=== PATIENT | male | born 1990 | race Caucasian/White ===

== ENCOUNTER 2017-08-16 15:50 | Emergency (ER) | payer OTHER ==
[2017-08-16 16:00] VITALS: TEMP 98.1
--- NOTE | 2017-08-16 16:10 | CPEKG ---
Heart Rate: 76 RR Interval: 789 P-R Interval: 132 QRSD Interval: 96 QT Interval: 384 QTC Interval: 432 P [place]: 48 QRS [place]: 24 T Wave [place]: 27 EKG Severity - ABNORMAL ECG - EKG Impression: SINUS RHYTHM EKG Impression: PROBABLE LEFT VENTRICULAR HYPERTROPHY Electronically Signed By: Justine Springer 16-Aug-2017 21:48:15
[2017-08-16] MEDS ORDERED: NS 1,000 ML IV ONE (16:15)
[2017-08-16] MEDS ORDERED: ONDANSETRON 4 MG/2 ML VIAL IVP ONE (16:15)
[2017-08-16] MEDS ORDERED: chlordiazePOXIDE 25 MG CAP PO ONE (16:16)
[2017-08-16] MEDS ORDERED: LORazepam 2 MG/ML INJ IVP ONE (16:16)
[2017-08-16 16:26] LABS: % IMMATURE GRANULYOCYTES 0.2 % (0.0-1.1); ABSOLUTE IMMATURE GRANULOCYTES 0.02 10^3/uL (0.00-0.10); ADD DIFF? NO; ADD MORPH? NO; ADD SCAN? NO; ATYPICAL LYMPHOCYTE FLAG 0 (0-99); FRAGMENT RBC FLAG 0 (0-99); HEMATOCRIT 47.1 % (40.0-51.0); HEMOGLOBIN 16.6 g/dL (13.7-17.5); LEFT SHIFT FLG 0 (0-99); LIPEMIA HEMOLYSIS FLAG 90 (0-99); MEAN CELL HEMOGLOBIN 31.4 pg (27.9-34.1); MEAN CELL HEMOGLOBIN CONCENTR. 35.2 g/dL (32.4-36.7); MEAN CELL VOLUME 89.2 fL (81.5-99.8); MEAN PLATELET VOLUME 8.3 fL (8.7-11.7); PLATELET CLUMPS FLAG 10 (0-99); PLATELET COUNT 298 10^3/uL (150-400); RED BLOOD CELL COUNT 5.28 10^6/uL (4.40-6.38)
[2017-08-16 16:39] LABS: ALANINE AMINOTRANSFERASE 49 IU/L (21-72); ALBUMIN 4.8 g/dL (3.5-5.0); ALKALINE PHOSPHATASE 104 IU/L (38-126); ANION GAP 16 mEq/L (8-16); ASPARTATE AMINOTRANSFERASE 39 IU/L (17-59); BILIRUBIN,TOTAL 1.5 mg/dL (0.1-1.4); BILIRUBIN-CONJUGATED 0.5 mg/dL (0.0-0.5); CALCIUM 9.2 mg/dL (8.5-10.4); CARBON DIOXIDE 26 mEq/l (22-31); CHLORIDE 99 mEq/L (97-110); CREATININE 0.7 mg/dL (0.7-1.3); GLOMERULAR FILTRATION RATE > 60; GLUCOSE 98 mg/dL (70-100); POTASSIUM 3.9 mEq/L (3.5-5.2); SODIUM 141 mEq/L (134-144); TOTAL PROTEIN 7.9 g/dL (6.3-8.2)
--- NOTE | 2017-08-16 17:00 | EDPHY ---
H & P Stated Complaint: "feels heart is racing" n/v/ sober 18 months/drank / thursday HPI/ROS: Chief complaint: Palpitations and shakiness History of present illness: This is a 27-year-old male who presents to the emergency department for palpitations and shakiness. He reports the onset of symptoms over the last day. He is concerned this is secondary to heavy alcohol use over and Thursday, 2 and 3 days ago respectively. He has a history of alcohol abuse. He has not had a drink for 8 months until these last 2 days. He has had withdrawal before and this feels similar. He also has anxiety and feels his anxiety is becoming exacerbated. He denies other associated signs or symptoms including no fevers or cold symptoms, no dizziness or lightheadedness, no chest pain, no shortness of breath, no pain or swelling in the legs. He did go to urgent care this morning for similar symptoms, was IV hydrated given Zofran and reported feeling much better but symptoms have returned. Review of systems: A 10 point review of systems was obtained and other than described above was negative - Personal History Current Tetanus/Diphtheria Vaccine: Yes - Medical/Surgical History Hx Asthma: No Hx Chronic Respiratory Disease: No Hx Diabetes: No Hx Cardiac Disease: No Hx Renal Disease: No Hx Cirrhosis: No Hx Alcoholism: No Hx HIV/AIDS: No Hx Splenectomy or Spleen Trauma: No Other PMH: hand surg - Social History Smoking Status: Current every day smoker - Physical Exam Exam: General Appearance: Alert, nontoxic. Eyes: Pupils equal and round no pallor or injection. ENT, Mouth: Mucous membranes moist. Respiratory: There are no retractions, lungs are clear to auscultation. Cardiovascular: Regular rate and rhythm. Gastrointestinal: Abdomen is soft and non tender, no masses, bowel sounds normal. Neurological: Alert and oriented x4. Strength and sensation intact and symmetrical. Skin: Warm and dry, no rashes. Musculoskeletal: Neck is supple non tender. Extremities are symmetrical, full range of motion. Psychiatric: Patient is anxious. Constitutional: Initial Vital Signs Temperature (C) 36.7 C 08/16/17 15:57 Heart Rate 90 08/16/17 15:57 Respiratory Rate 20 08/16/17 15:57 Blood Pressure 170/106 H 08/16/17 15:57 O2 Sat (%) 93 08/16/17 15:57 O2 Delivery Mode Room Air Allergies/Adverse Reactions: No Known Allergies Allergy (Unverified 08/16/17 15:57) Home Medications: Medication Instructions Recorded Doxepin HCl 08/16/17 Medical Decision Making ED Course/Re-evaluation: Patient seen under the supervision of my secondary supervising physician Dr. Justine Springer. Patient presents to the emergency department for palpitations and shakiness. This began after heavy alcohol use over the last 2 days. He does have a history of alcohol abuse and withdrawal. On presentation he is nontoxic. Vital signs are stable. Physical exam is benign. Blood studies and EKG unremarkable. He is treated with IV hydration, Zofran, IV Ativan and oral Librium. He reports significant improvement in symptoms. He is comfortable being discharged home. Home care is discussed including the avoidance of alcohol. Return precautions are given. Patient voiced understanding and agreement with plan. Differential Diagnosis: Included but not limited to anxiety, alcohol intoxication, alcohol withdrawal, polysubstance abuse - Data Points Laboratory Results: Laboratory Results 08/16/17 16:09 08/16/17 16:09 08/16/17 08/16/17 16:09 16:09 WBC 9.07 10^3/uL 10^3/uL (3.80-9.50) RBC 5.28 10^6/uL 10^6/uL (4.40-6.38) Hgb 16.6 g/dL g/dL (13.7-17.5) Hct 47.1 % % (40.0-51.0) MCV 89.2 fL fL (81.5-99.8) MCH 31.4 pg pg (27.9-34.1) MCHC 35.2 g/dL g/dL (32.4-36.7) RDW 12.0 % % (11.5-15.2) Plt Count 298 10^3/uL 10^3/uL (150-400) MPV 8.3 fL L fL (8.7-11.7) Neut % (Auto) 76.5 % H % (39.3-74.2) Lymph % (Auto) 15.1 % % (15.0-45.0) [place] % (Auto) 7.6 % % (4.5-13.0) Eos % (Auto) 0.0 % L % (0.6-7.6) Baso % (Auto) 0.6 % % (0.3-1.7) Nucleat RBC Rel Count 0.0 % % (0.0-0.2) Absolute Neuts (auto) 6.94 10^3/uL H 10^3/uL (1.70-6.50) Absolute Lymphs (auto) 1.37 10^3/uL 10^3/uL (1.00-3.00) Absolute Monos (auto) 0.69 10^3/uL 10^3/uL (0.30-0.80) Absolute Eos (auto) 0.00 10^3/uL L 10^3/uL (0.03-0.40) Absolute Basos (auto) 0.05 10^3/uL 10^3/uL (0.02-0.10) Absolute Nucleated RBC 0.00 10^3/uL 10^3/uL (0-0.01) Immature Gran % 0.2 % % (0.0-1.1) Immature Gran # 0.02 10^3/uL 10^3/uL (0.00-0.10) Sodium 141 mEq/L mEq/L (134-144) Potassium 3.9 mEq/L mEq/L (3.5-5.2) Chloride 99 mEq/L mEq/L (97-110) Carbon Dioxide 26 mEq/l mEq/l (22-31) Anion Gap 16 mEq/L mEq/L (8-16) BUN 9 mg/dL mg/dL (7-23) Creatinine 0.7 mg/dL mg/dL (0.7-1.3) Estimated GFR > 60 Glucose 98 mg/dL mg/dL (70-100) Calcium 9.2 mg/dL mg/dL (8.5-10.4) Total Bilirubin 1.5 mg/dL H mg/dL (0.1-1.4) Conjugated Bilirubin 0.5 mg/dL mg/dL (0.0-0.5) Unconjugated Bilirubin 1.0 mg/dL mg/dL (0.0-1.1) AST 39 IU/L IU/L (17-59) ALT 49 IU/L IU/L (21-72) Alkaline Phosphatase 104 IU/L IU/L (38-126) Total Protein 7.9 g/dL g/dL (6.3-8.2) Albumin 4.8 g/dL g/dL (3.5-5.0) Lipase 73 IU/L IU/L (23-300) Medications Given: Discontinued Medications Chlordiazepoxide HCl (Librium) 25 mg PO EDNOW ONE Stop: 08/16/17 16:17 Last Admin: 08/16/17 16:25 Dose: 25 mg Sodium Chloride (Ns) 1,000 mls @ 0 mls/hr IV EDNOW ONE; Wide Open PRN Reason: Protocol Stop: 08/16/17 16:16 Last Admin: 08/16/17 16:25 Dose: 1,000 mls Lorazepam (Ativan Injection) 1 mg IVP EDNOW ONE Stop: 08/16/17 16:17 Last Admin: 08/16/17 16:25 Dose: 1 mg Ondansetron HCl (Zofran) 4 mg IVP EDNOW ONE Stop: 08/16/17 16:16 Last Admin: 08/16/17 16:26 Dose: 4 mg Departure - Departure Disposition: Home, Routine, Self-Care Clinical Impression: Palpitations Condition: Good Instructions: Palpitations (ED) Additional Instructions: Follow-up with a primary care doctor for recheck If symptoms worsen or new symptoms develop return to the emergency room for recheck Referrals: [facility] [Other] - As per Instructions [facility],. [Clinic] - As per Instructions
[2017-08-16 17:17] VITALS: BP 150/94; PULSE 94; RESP 16; O2SAT 96
== END 2017-08-16 17:21 | disposition home or self-care (01) ==
DX: R00.2 Palpitations (principal); E86.9 Volume depletion, unspecified; F17.200 Nicotine dependence, unspecified, uncomplicated
CPT/HCPCS: 96374; J2060; J2405